=== PATIENT | female | born 1975 | race Caucasian/White ===

== ENCOUNTER → 2019-08-08 13:19 | Outpatient (CLI) | payer BC, SELFPAY ==
--- NOTE | ~2019-08-08 | CT_ITS ---
EXAMINATION: CT abdomen pelvis w con EXAM DATE: 08/08/2019 13:50 INDICATION: Worsening right lower quadrant pain. Constipation diarrhea. Right oophorectomy. TECHNIQUE: Spiral CT of the abdomen and pelvis was performed following intravenous injection of 100 m L Omnipaque 350. Axial, coronal and sagittal images were reviewed. The dose-length product (DLP) fo r this examination was 474.70 mGy-cm. The exposure was tailored according to patient size (auto mA e xposure control), and iterative reconstruction (ASIR) was used as additional dose reduction technique . Comparison is made to prior examination from 07/12/2018. Correlation was made with pelvic sonogram . FINDINGS: The liver, spleen, adrenal glands and pancreas are unremarkable. There is a poorly periphe rally calcified gallstone measuring 2.2 cm. Gallbladder otherwise unremarkable. Portal and splenic v eins are patent. Kidneys enhance symmetrically. There is no hydronephrosis. Again there is loculated appearing fluid within the endometrial cavity, including lobulation extendin g toward the uterine cornea bilaterally, fluid pocket has increased in size compared to previous exam ination. Can't exclude obstructing cervical mass. The bladder is unremarkable. There is no retroperi toneal or pelvic lymphadenopathy. The appendix is normal. The stomach and small bowel are unremarkable. There is expected amount of c olonic stool. No free intraperitoneal gas. The heart is normal in size. There are no pericardial or pleural effusions. The lung bases are unremarkable. The bones are unremarkable. IMPRESSION: Increase in amount of loculated appearing endometrial fluid, difficult to exclude obstruc ting cervical mass or underlying cancer. Reviewed, dictated and finalized at location B. IMPRESSION: Increase in amount of loculated appearing endometrial fluid, diffic ult to exclude obstructing cervical mass or underlying cancer.
== END ==
DX: R10.31 Right lower quadrant pain (principal); R11.0 Nausea
CPT/HCPCS: 74177; Q9967

== ENCOUNTER 2019-08-28 09:03 | Emergency (ER) | payer BC, SELFPAY ==
--- NOTE | 2019-08-28 09:09 | ED.FEMALEGU ---
HPI - Female Genitourinary General Chief complaint: Urogenital-Female Stated complaint: uti Time Seen by Provider: 08/28/19 09:27 Source: patient and RN notes reviewed Mode of arrival: ambulatory Limitations: no limitations History of Present Illness HPI Narrative: 44-year-old female presents with concern for urinary tract infection. She reports symptoms started this morning with dysuria. Denies hematuria, frequency, urgency, flank pain, abdominal pain. She denies fever, malaise. MD elicited complaint: UTI Related Data Home Medications Medication Instructions Recorded Confirmed dicyclomine 10 mg PO TID 08/28/19 08/28/19 doxycycline hyclate 20 mg PO Q12H 08/28/19 08/28/19 linaclotide [Linzess] 72 mcg PO BID 08/28/19 08/28/19 pantoprazole 40 mg PO HS 08/28/19 08/28/19 Allergies Allergy/AdvReac Type Severity Reaction Status Date / Time No Known Allergies Verified 08/28/19 09:33 Review of Systems Review of Systems: Narrative: CONSTITUTIONAL: Denies malaise, chills, sweats, or fever. CARDIOVASCULAR: Denies chest pain, palpitations RESPIRATORY: Denies cough or dyspnea. GASTROINTESTINAL: Denies abdominal pain, nausea, vomiting, diarrhea GENITOURINARY: Reports dysuria. Denies frequency, urgency, flank pain, hematuria. SKIN: Denies rash or itching. MUSCULOSKELETAL: Denies back pain or myalgia. All systems reviewed & are unremarkable except as noted in HPI and below PMFSH Comments At time of signature, agree with nursing past medical, surgical, social and family history. There is no relevant family history pertinent to the presenting complaint Exam Narrative: Exam Narrative: GENERAL: Well-appearing, well-nourished, and in no acute distress. HEAD: Normocephalic. EYES: PERRLA, conjunctivae clear. NECK: Supple. No lymphadenopathy CHEST: Clear to auscultation. No respiratory distress. HEART: Regular rate and rhythm. No murmur heard. Normal peripheral pulses. ABDOMEN: Soft, nontender upon palpation, nondistended, normal active bowel sounds, no palpable or pulsatile masses, no guarding. No CVA tenderness SKIN: Warm, dry, no rash. NEURO: Alert and oriented x3. PSYCH: Normal mood and affect Course Course Emergency Course: Patient is aware of diagnosis, understands and agrees to treatment plan. Anticipatory guidance given. Patient agrees to follow-up as directed and is aware of reasons to seek care at the emergency department. Portions of this record may have been created with voice recognition software Vital Signs Vital signs: Vital Signs Temperature 98.7 F 08/28/19 09:13 Pulse Rate 79 08/28/19 09:13 Respiratory Rate 18 08/28/19 09:13 Blood Pressure 134/83 08/28/19 09:13 Pulse Oximetry 100 08/28/19 09:13 Temperature 98.7 F 08/28/19 09:13 Pulse Rate 79 08/28/19 09:13 Respiratory Rate 18 08/28/19 09:13 Blood Pressure 134/83 08/28/19 09:13 Pulse Oximetry 100 08/28/19 09:13 Reviewed. Patient has been instructed to follow up with her primary care provider within the next week regarding her elevated blood pressure today. MDM - Female Genitourinary MDM Narrative Medical decision making narrative: Exam findings and UA show no acute concerns or changes; patient is non-toxic appearing and is in no distress. Patient is appropriate for outpatient treatment and follow-up. Differential Diagnosis Differential diagnosis: Likely urinary tract infection, bacterial vaginosis, vaginitis and cystitis Lab Data Labs: Urine Glucose Negative Reference Range: Negative Urine Bilirubin Negative Reference Range: Negative Urine Ketone Negative Reference Range: Negative Urine Specific [place] 1.020 Reference Range:1.001-1.035 Urine Blood 2+ Reference Range: Negative * * Urine pH 6.0 Reference Range: 5.0-9.0
[2019-08-28 09:13] VITALS: BP 134/83; PULSE 79; RESP 18; TEMP 37.1; O2SAT 100
== END 2019-08-28 09:35 | disposition home or self-care (01) ==
PROVIDERS: Emergency Provider Nurse Practitioner
DX: N39.0 Urinary tract infection, site not specified (principal); K58.9 Irritable bowel syndrome, unspecified
CPT/HCPCS: 81003; 87077; 87086; 87088; 87186; 99213; G0463

== ENCOUNTER → 2020-04-30 10:33 | Outpatient (CLI) | payer BC, SELFPAY ==
--- NOTE | ~2020-04-30 | MM_ITS ---
EXAMINATION: MM screening [facility] BI w loi HISTORY: Screening mammogram TECHNIQUE: Craniocaudal and mediolateral oblique 3-D tomosynthesis images were obtained and synthetic 2-D images were generated. CAD analysis was submitted and interpreted. COMPARISON: 04/19/2019, 12/14/2017, 12/03/2017, 05/15/2016 BREAST PARENCHYMAL COMPOSITION: The breasts are almost entirely fatty. FINDINGS: RIGHT BREAST: There is no evidence of suspicious mass, calcification, or architectural distortion to suggest malignancy. There has been no significant interval change. LEFT BREAST: An asymmetry is present in the subareolar aspect of the breast on the mediolateral obliq ue view. IMPRESSION: 1. Left breast asymmetry on the mediolateral oblique view. 2. Additional mammographic views and possible breast ultrasound are recommended. BI-RADS Category 0: Incomplete: Needs additional imaging evaluation. Reviewed, dictated and finalized at location A. DYEING VAT TENDER IMPRESSION: 1. Left breast asymmetry on the mediolateral oblique view. 2. Additional mammographic views and possible breast ultrasound are recommended . BI-RADS Category 0: Incomplete: Needs additional imaging evaluation.
== END ==
PROVIDERS: PCP Internal Medicine; Visit Provider Obstetrics & Gynecology
DX: Z12.31 Encounter for screening mammogram for malignant neoplasm of breast (principal); R92.8 Other abnormal and inconclusive findings on diagnostic imaging of breast
CPT/HCPCS: 77063; 77067

== ENCOUNTER → 2020-05-17 07:58 | Outpatient (CLI) | payer BC, SELFPAY ==
--- NOTE | ~2020-05-17 | MM_ITS ---
EXAMINATION: MM diagnostic mammo unilat LT HISTORY: Left breast asymmetry reported overlying subareolar area on screening MLO view on 04/30/2020 TECHNIQUE: Additional 3-D tomosynthesis images of the left breast were performed and synthetic 2-D im ages were generated. CAD analysis was submitted and interpreted. COMPARISON: 04/30/2020, 04/19/2019bilateral digital screening mammogram examinations 12/14/2017 diagnostic left digital mammogram 12/03/2017,05/15/2016 bilateral digital screening mammogram FINDINGS: No suspicious mass or architectural distortion, malignant calcification, skin thickening or retraction or significant new or developing density is detected. IMPRESSION: 1. No mammographic evidence of malignancy 2. Routine annual mammographic screening is recommended. BI-RADS Category 1: Negative Reviewed, dictated and finalized at location A. ET PRESS OPERATOR
== END ==
PROVIDERS: PCP Internal Medicine; Visit Provider Obstetrics & Gynecology
DX: R92.8 Other abnormal and inconclusive findings on diagnostic imaging of breast (principal)
CPT/HCPCS: 77065

== ENCOUNTER → 2021-05-09 12:28 | Outpatient (CLI) | payer BC, SELFPAY ==
--- NOTE | ~2021-05-09 | MM_ITS ---
EXAMINATION: MM screening [facility] BI w loi HISTORY: Screening TECHNIQUE: Craniocaudal and mediolateral oblique 3-D tomosynthesis images were obtained and synthetic 2-D images were generated. CAD analysis was submitted and interpreted. COMPARISON: Comparison to multiple prior studies sequentially, with oldest reviewed study dated 05/15. BREAST PARENCHYMAL COMPOSITION: There are scattered areas of fibroglandular density. FINDINGS: There is no evidence of suspicious mass, calcification, or architectural distortion to sugg est malignancy in either breast. There has been no suspicious interval change. IMPRESSION: 1. No mammographic evidence of malignancy. 2. Recommend routine screening mammography in one year. BI-RADS Category 1: Negative Reviewed, dictated and finalized at location A. S PRODUCER
== END ==
PROVIDERS: PCP Internal Medicine; Visit Provider Obstetrics & Gynecology
DX: Z12.31 Encounter for screening mammogram for malignant neoplasm of breast (principal)
CPT/HCPCS: 77063; 77067

== ENCOUNTER → 2023-05-26 16:04 | Outpatient (CLI) | payer BC, SELFPAY ==
--- NOTE | ~2023-05-26 | MM_ITS ---
EXAMINATION: MM screening [facility] BI w loi HISTORY: Screening TECHNIQUE: Craniocaudal and mediolateral oblique 3-D tomosynthesis images were obtained and synthetic 2-D images were generated. CAD analysis was submitted and interpreted. COMPARISON: Comparison to multiple prior studies sequentially, with oldest reviewed study dated 12/2017. BREAST PARENCHYMAL COMPOSITION: The breasts are almost entirely fatty. FINDINGS: There is no evidence of suspicious mass, calcification, or architectural distortion to sugg est malignancy in either breast. There has been no suspicious interval change. IMPRESSION: 1. No mammographic evidence of malignancy. 2. Recommend routine screening mammography in one year. BI-RADS Category 1: Negative Reviewed, dictated and finalized at location A. ORATION SILVERSMITH
== END ==
PROVIDERS: PCP Physician Assistant; Visit Provider Obstetrics & Gynecology
DX: Z12.31 Encounter for screening mammogram for malignant neoplasm of breast (principal)
CPT/HCPCS: 77063; 77067

== ENCOUNTER 2023-08-26 10:51 | Outpatient (CLI) | payer BC, SELFPAY ==
--- NOTE | ~2023-08-26 | US_ITS ---
EXAMINATION: US pelvic complete w TV DATE: 08/26/2023 11:19 INDICATION: Abnormal uterine and vaginal bleeding. Postmenopausal. TECHNIQUE: Multiple transabdominal and transvaginal sonographic images of the pelvis were obtained. COMPARISON: Ultrasound 04/04/22 FINDINGS: TRANSABDOMINAL ULTRASOUND: The uterus measures 6.6 x 3.4 x 3.4 cm. There is no free fluid in the pelvis. TRANSVAGINAL ULTRASOUND: The endometrial complex measures 8 mm in thickness. The right ovary is not visualized. The left ovary measures 2.4 x 1.8 x 2.5 cm. There is a 1.6 cm cyst with peripheral low-level echoes in left ovary, likely benign. IMPRESSION: 1. Thickened endometrial complex. The differential diagnosis includes endometrial hyperplasia, polyp, and carcinoma. Biopsy is recommended. Reviewed, dictated and finalized at location A. IMPRESSION: 1. Thickened endometrial complex. The differential diagnosis includes endometri al hyperplasia, polyp, and carcinoma. Biopsy is recommended.
== END 2023-08-26 10:52 ==
LOC: MICIMG 10:52
PROVIDERS: PCP Obstetrics & Gynecology; Visit Provider Obstetrics & Gynecology
DX: N93.9 Abnormal uterine and vaginal bleeding, unspecified (principal)
CPT/HCPCS: 76830; 76856

== ENCOUNTER 2023-09-01 10:55 | Outpatient (CLI) | payer BC, SELFPAY ==
[2023-09-01 13:00] LABS: Hematocrit 46.7 % (37.0-47.0); Mean Corpuscular HGB Conc 32.1 g/dl (32-36); Mean Corpuscular Hemoglobin 28.5 pg (26-34); Mean Corpuscular Volume 88.6 fl (80-100); Platelet Count Result 340 k/mm3 (150-375); Red Blood Count 5.27 M/mm3 (4.2-5.4); Red Cell Distribution Width 13.3 % (11.5-14.5); White Blood Count 5.7 K/mm3 (4.5-10.0)
== END 2023-09-01 10:56 | disposition home or self-care (01) ==
LOC: ANHSURGERY 11:05
PROVIDERS: PCP Physician Assistant; Visit Provider Obstetrics & Gynecology
DX: Z01.818 Encounter for other preprocedural examination (principal); N95.0 Postmenopausal bleeding
CPT/HCPCS: 36415; 85027

== ENCOUNTER 2023-09-03 00:37 | Day surgery (SDC) | payer BC, SELFPAY ==
[2023-08-28 12:47] VITALS: BMI 29.8
--- NOTE | 2023-08-28 12:55 | PC.NURSE ---
Report to the Outpatient Waiting Room, entrance under the green pavilion located off [facility], at time _0615_ on date _[id number]_. Planned Procedure Time: _0815_. Time changes happen often and if your time is changed the preop area will call you the afternoon before. - You and your visitor will be asked to self-screen and do not enter if you have any COVID symptoms. - A mask is optional within the hospital at this time. Patients may have clear liquids (water, carbonated beverages, clear teas, apple juice) until 3 hours prior to surgery with a maximum of 20 ounces. - No food from midnight until time of surgery Take the following medications with a SIP of water the morning of surgery: ___None DO NOT STOP ANY OF YOUR OTHER PRESCRIPTION MEDICATIONS PRIOR TO SURGERY ?EXCEPT THE FOLLOWING Medications to discontinue per physician None Date to take last dose Please no make-up, nail bruneian, hairspray, perfume, deodorant, or body powder the day of surgery. No jewelry (including any body piercings) or valuables the day of surgery, leave them at home. Please take a shower or bath the night before, or the morning of, surgery with an antibacterial soap. Wear comfortable, loose fitting clothing. - Jewelry must be removed prior to entering the operating room. Rings and piercings that are not removed may be cut off. - The hospital will not accept responsibility for valuables. - Please leave all valuables, including medications, at home the day of surgery. If you are going home after surgery, a licensed recycler forklift driver truck driver must drive you home. - NO public transportation without another adult if you receive anesthesia. - We recommend that an adult stay with you for 24 hours following discharge. - We also recommend that you do not drive, make important decision, drink alcoholic beverages, or take any drugs that were not prescribed by your health care provider for at least 24 hours after your discharge time. Follow any additional instructions given to you from your surgeon. If you or anyone in your household have experienced Covid symptoms in the past week, please notify your surgeon or the nurse liaison at the phone number below for possible testing. Telephone instructions given to __Darin___and asked if any additional questions and then verbalized understanding. Patient advised to call surgeon office or pre surgery nurse liaison [phone] if any additional questions.
--- NOTE | 2023-09-02 14:41 | PM.IMHP ---
H&P: HPI History of Present Illness Date/Time: 09/02/23 14:41 48-year-old female presents for evaluation of postmenopausal bleeding. She is diagnosed with menopause approximately 18 months ago, since that time has been undergoing estrogen and testosterone supplementation without difficulty. Did have some bleeding over the past few months and therefore had ultrasound done which did show endometrial lining of 8mm. She does have a history of hysteroscopy D&C endometrial ablation in the past due to polyps and this was in 2017. Denies any significant pain or discomfort but does present today due to the bleeding and endometrial hypertrophy. Chief Complaint: Postmenopausal bleed Review of Systems Review of Systems: All systems reviewed & are unremarkable except as noted in HPI and below PMFSH Past Medical History Medical History Anxiety Artificial insemination 3 failed IUIs, 1 failed IVF, 1 successful IVF Asthma Constipation Gastroenteritis (~1998) Gestational hypertension Hypertension Screening mammogram, encounter for Surgical History Surgical History History of (~2009) primary c/s--macrosomia History of dilation and curettage 12/11/16 Hysteroscopy D&C/ polypectomy/ Novasure Ablation/ Tubal ligation; Menometrorrhagia/ dysmenorrhea/ undesired fertility - path: proliferative endometium, benign endometrial polyp 09/08/19 hscope d&c--endometrial abnormality--benign History of endometrial ablation (12/11/16) Hysteroscopy D&C/ polypectomy/ Novasure Ablation/ Tubal ligation; Menometrorrhagia/ dysmenorrhea/ undesired fertility - path: proliferative endometium, benign endometrial polyp History of laparoscopy 08/2007 History of right salpingo-oophorectomy (09/02/18) lscope RSO--(R) adnexal mass/adhesions History of tubal ligation (12/11/16) Family History Family History Father Heart disease Hypertension Mother Osteoporosis Stage 4 chronic kidney disease Malignant neoplasm of skin Grandparent Carcinoma of colon paternal grandmother Malignant melanoma maternal grandfather Social History Social History Smoking status: Never smoker Second hand tobacco smoke exposure: No Alcohol intake: current Alcohol use details: 1-2 twice a year Substance use: never Substance use type: does not use Lack of Transportation: No Lack of Food: Never True Current Housing: I Have Housing Concerned About Future Housing: No Difficulty Paying Gas/Electric Bills: No Difficulty Paying for Meds: No Currently Unemployed: No Education: Master's Degree or Higher Difficulty w/ Childcare or Family Care: No Living arrangements: with family Additional living arrangements comments: 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 Gender identity (if verbalized by the patient): Female Sexual Orientation (if Verbalized by the Patient): Straight or Heterosexual Spiritual care concerns: No Meds Home Medications and Allergies Home Medications Medication Instructions Recorded Confirmed Type doxycycline hyclate 20 mg tablet 20 mg PO Q12H 03/30/23 08/28/23 History progesterone micronized 200 mg 200 mg PO QHS 03/30/23 08/28/23 History capsule Allergies Allergy/AdvReac Type Severity Reaction Status Date / Time Sulfa (Sulfonamide AdvReac Mild Other Verified 08/28/23 12:44 Antibiotics) Exam Resp: Effort & Inspection: normal respiratory effort Auscultation: clear to auscultation bilaterally Cardio: Rate: regular rate Rhythm: regular rhythm GI: Inspection: normal to inspection Auscultation: normal bowel sounds : External Female Exam: normal external appearance Speculum Exam - Vagina: n
[2023-09-03 06:25] VITALS: BP 141/83; PULSE 71; RESP 16; TEMP 36.2; O2SAT 99
[2023-09-03 07:18] VITALS: BMI 29.9
[2023-09-03] MEDS: LACTATED RINGERS 1,000 ML 30 ML IV CONT (07:23)
[2023-09-03] MEDS: ACETAMINOPHEN 500 MG TABLET 1000 MG PO (07:25)
--- NOTE | 2023-09-03 07:26 | WPDHPUPDATE1 ---
History and Physical Update Update Date/Time: 09/03/23 07:26 History and Physical has been reviewed, including an updated exam of the patient. There are NO changes in the patient's condition. Risks, benefits, and alternatives have been discussed and questions answered. Patient agrees to proceed with procedure.
--- NOTE | 2023-09-03 07:42 | WPDANESEPPF ---
Anes - Initial Pre Proc Eval Procedure: Operation Date: 09/03/23 08:15 Proposed Procedures p Hysteroscopy, Dilation and Curettage with Polypectomy - David Lee MD Date/Time: 09/03/23 07:42 Surgeon: David Lee MD Pre Op Diagnosis: abnormal uterine bleeding Patient Data Age: 48 Gender: F Height: 1.6 m Weight: 76.8 kg Last Vital Signs Temp 36.2 C L 09/03/23 06:25 Pulse 71 09/03/23 06:25 Resp 16 09/03/23 06:25 BP 141/83 H 09/03/23 06:25 Pulse Ox 99 09/03/23 06:25 O2 Del Method Room Air 09/03/23 06:25 Allergies Allergy/AdvReac Type Severity Reaction Status Date / Time Sulfa (Sulfonamide AdvReac Mild Other Verified 09/03/23 07:27 Antibiotics) Home Medications Medication Instructions Recorded Confirmed Type doxycycline hyclate 20 mg tablet 20 mg PO Q12H 03/30/23 08/28/23 History progesterone micronized 200 mg 200 mg PO QHS 03/30/23 08/28/23 History capsule Patient hx anesthesia problems: none Family hx anesthesia problems: none Results Review: All pre-operative results and documents have been reviewed as part of the pre-operative evaluation. FORMERLY [facility], [facility] Past Medical History Medical History Anxiety Artificial insemination 3 failed IUIs, 1 failed IVF, 1 successful IVF Asthma Constipation Gastroenteritis (~1998) Gestational hypertension Hypertension Screening mammogram, encounter for Surgical History Surgical History History of (~2009) primary c/s--macrosomia History of dilation and curettage 12/11/16 Hysteroscopy D&C/ polypectomy/ Novasure Ablation/ Tubal ligation; Menometrorrhagia/ dysmenorrhea/ undesired fertility - path: proliferative endometium, benign endometrial polyp 09/08/19 hscope d&c--endometrial abnormality--benign History of endometrial ablation (12/11/16) Hysteroscopy D&C/ polypectomy/ Novasure Ablation/ Tubal ligation; Menometrorrhagia/ dysmenorrhea/ undesired fertility - path: proliferative endometium, benign endometrial polyp History of laparoscopy 08/2007 History of right salpingo-oophorectomy (09/02/18) lscope RSO--(R) adnexal mass/adhesions History of tubal ligation (12/11/16) Family History Family History Father Heart disease Hypertension Mother Osteoporosis Stage 4 chronic kidney disease Malignant neoplasm of skin Grandparent Carcinoma of colon paternal grandmother Malignant melanoma maternal grandfather Social History Social History Smoking status: Never smoker Second hand tobacco smoke exposure: No Alcohol intake: current Alcohol use details: 1-2 twice a year Substance use: never Substance use type: does not use Lack of Transportation: No Lack of Food: Never True Current Housing: I Have Housing Concerned About Future Housing: No Difficulty Paying Gas/Electric Bills: No Difficulty Paying for Meds: No Currently Unemployed: No Education: Master's Degree or Higher Difficulty w/ Childcare or Family Care: No Living arrangements: with family Additional living arrangements comments: 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
[2023-09-03] MEDS: KETOROLAC 30 MG/ML VIAL (*BKC) IV PUSH (08:40)
[2023-09-03 08:55] VITALS: BP 104/56; PULSE 59; RESP 10; O2SAT 93
--- NOTE | 2023-09-03 09:06 | W.PM.PROC2 ---
Procedure Note - Detailed Date of Procedure 09/03/23 Pre-op Diagnosis 1. Postmenopausal bleeding 2. Endometrial hypertrophy Post-op Diagnosis Same (3. Uterine scarring) Procedure Performed DESCRIPTION OF PROCEDURE Patient was prepped and draped in usual manner for this procedure. Cervix was dilated to allow the hysteroscope to be placed which did reveal the endocervical canal to be without abnormality, further insertion into the endometrial cavity was difficult due to prior ablation with good destruction noted through most of the cavity with a small canal to the right of the cavity this was scarred without any evidence of polyps or hyperplasia. Curetting was obtained though minimal tissue was able to be removed. Patient tolerated the procedure well and was sent to recovery room in stable condition. Surgeon David Lee MD Anesthesia MAC Findings Scarring from prior ablation Description of Procedure PROCEDURE PERFORMED 1. Hysteroscopy 2. Uterine curettings Estimated Blood Loss 10 Drains No Packing No Pathology Yes Complications No immediate complications Condition Stable Disposition PACU [facility] Billing Surgery - Charge Forward: Surgery Billing
[2023-09-03 09:25] VITALS: BP 107/71; PULSE 58; RESP 20
[2023-09-03 09:50] VITALS: BP 109/53; PULSE 64; RESP 20
== END 2023-09-03 09:55 | disposition home or self-care (01) ==
PROVIDERS: PCP Physician Assistant; Visit Provider Obstetrics & Gynecology
PROC: 0U5B8ZZ Destruction of Endometrium, Via Natural or Artificial Opening Endoscopic (ICD-10-PCS; CPT 58563; principal; 2023-09-03 08:15)
DX: N85.8 Other specified noninflammatory disorders of uterus (principal); I10 Essential (primary) hypertension; F41.9 Anxiety disorder, unspecified; J45.909 Unspecified asthma, uncomplicated; Z98.890 Other specified postprocedural states; Z84.0 Family history of diseases of the skin and subcutaneous tissue; Z80.0 Family history of malignant neoplasm of digestive organs; Z82.49 Family history of ischemic heart disease and other diseases of the circulatory system
CPT/HCPCS: 58558; 88305; A9270; J1100; J1885; J2250; J2405; J2704; J3010; J7120

== ENCOUNTER 2024-05-27 11:29 | Outpatient (CLI) | payer BC, SELFPAY ==
--- NOTE | ~2024-05-27 | MM_ITS ---
EXAMINATION: MM screening [facility] BI w loi HISTORY: Screening TECHNIQUE: Craniocaudal and mediolateral oblique 3-D tomosynthesis images were obtained and synthetic 2-D images were generated. CAD analysis was submitted and interpreted. COMPARISON: Comparison to multiple prior studies sequentially, with oldest reviewed study dated 12/14. BREAST PARENCHYMAL COMPOSITION: Not Dense: The breasts are almost entirely fatty. FINDINGS: There is no evidence of suspicious mass, calcification, or architectural distortion to sugg est malignancy in either breast. There has been no suspicious interval change. IMPRESSION: 1. No mammographic evidence of malignancy. 2. Recommend routine screening mammography in one year. BI-RADS Category 1: Negative Reviewed, dictated and finalized at location A. GER FASHION
== END 2024-05-27 11:30 | disposition home or self-care (01) ==
LOC: MICIMG 11:31
PROVIDERS: PCP Physician Assistant; Visit Provider Obstetrics & Gynecology
DX: Z12.31 Encounter for screening mammogram for malignant neoplasm of breast (principal)
CPT/HCPCS: 77063; 77067